=== PATIENT | male | born 1955 | race Caucasian/White ===

== ENCOUNTER → 2019-08-26 14:35 | Outpatient (CLI) | payer MEDICARE, SELFPAY ==
[2019-08-26 16:04] LABS: Add Manual Diff / Slide Review NO; Basophils Absolute Auto 0 /uL (0-100); Basophils Percent Auto 0.7 % (0-2); Eosinophils Absolute Auto 100 /uL (0-450); Eosinophils Percent Auto 1.4 % (2-4); Hematocrit 40.9 % (41-53); Hemoglobin 14.2 g/dL (13.5-17.5); Lymphocytes Absolute Auto 1200 /uL (1100-4500); Lymphocytes Percent Auto 21.2 % (25-40); Mean Corpuscular HGB Conc 34.7 % (30-36); Mean Corpuscular Hemoglobin 30.4 PG (26-34); Mean Corpuscular Volume 87.6 fL (80-100); Monocytes Absolute Auto 400 /uL (0-900); Monocytes Percent Auto 6.6 % (3-14); Neutrophils Absolute Auto 4000 /uL (1500-7000); Neutrophils Percent Auto 70.1 % (50-75); Platelet Count 205 X10^3/uL (150-400); Red Blood Cell Count 4.67 X10^6/uL (4.5-5.9); Red Cell Distribution Width 12.8 % (11.6-14.8); White Blood Cell Count 5.7 X10^3/uL (4.5-11.0)
[2019-08-26 16:27] LABS: Carbon Dioxide 24 mmol/L (22-32); Chloride 105 mmol/L (98-107); HEMOLYSIS < 15 (0-50); Potassium 3.7 mmol/L (3.4-5.1); Sodium 137 mmol/L (137-145)
== END ==
PROVIDERS: PCP Family Medicine; Referring Provider Orthopaedic Surgery; Visit Provider Orthopaedic Surgery
DX: Z01.812 Encounter for preprocedural laboratory examination (principal); Z01.818 Encounter for other preprocedural examination
CPT/HCPCS: 36415; 80051; 85025

== ENCOUNTER → 2019-09-08 08:18 | Outpatient (CLI) | payer MEDICARE, SELFPAY ==
[2019-09-09 21:50] LABS: COVID19 Sendout Positive (Not Detect)
== END ==
PROVIDERS: PCP Family Medicine; Visit Provider Physician Assistant
DX: U07.1 COVID-19 (principal)
CPT/HCPCS: 87635

== ENCOUNTER → 2019-09-26 08:35 | Outpatient (CLI) | payer MEDICARE, SELFPAY ==
[2019-09-27 14:12] LABS: COVID19 Sendout Not Detected (Not Detected)
== END ==
PROVIDERS: PCP Family Medicine; Visit Provider Physician Assistant
DX: Z11.59 Encounter for screening for other viral diseases (principal); Z86.19 Personal history of other infectious and parasitic diseases
CPT/HCPCS: 87635

== ENCOUNTER → 2019-10-06 15:38 | Outpatient (CLI) | payer MEDICARE, SELFPAY ==
[2019-10-07 10:52] LABS: COVID19 Sendout Not Detected (Not Detect)
== END ==
PROVIDERS: PCP Family Medicine; Visit Provider Nurse Practitioner
DX: Z11.59 Encounter for screening for other viral diseases (principal)
CPT/HCPCS: 87635

== ENCOUNTER 2019-10-09 12:07 | Observation (INO) | payer MEDICARE, OTHER, SELFPAY ==
[2019-10-04 12:18] VITALS: BMI 28.0
[2019-10-09] VITALS (11 sets, daily range): BP systolic 112–158; BP diastolic 65–86; PULSE 56–80; RESP 8–18; TEMP 35.8–36.9; O2SAT 96–100; BMI 28.0
--- NOTE | 2019-10-09 10:15 | DI.RAD.S_ITS ---
PROCEDURE: XR PELVIS 1-2V INDICATIONS: TOTAL LEFT HIP TECHNIQUE: 1 view of the lower pelvis acquired. COMPARISON: None. FINDINGS: Bones: Patient is status post left hip arthroplasty, with hardware components in expected positions. The hip joint appears congruent. The visualized bony structures appear intact. Soft tissues: Overlying postoperative changes are noted. No suspicious soft tissue densities. IMPRESSION: Normal alignment after left total hip arthroplasty. Dictated by: Doug Han M.D. on 10/09/2019 at 16:11 Approved by: Doug Han M.D. on 10/09/2019 at 16:11
[2019-10-09] MEDS: PREGABALIN 75 MG CAPSULE PO (12:41)
[2019-10-09] MEDS: CELECOXIB 200 MG CAPSULE PO (12:41)
[2019-10-09] MEDS: LACTATED RINGERS 1,000 ML 42 ML IV ×2 (12:41→14:52)
[2019-10-09] MEDS: ACETAMINOPHEN 325 MG TABLET 975 MG PO (12:41)
[2019-10-09] MEDS: CEFAZOLIN 2 GM/100 ML FROZ.PIGGY IV ×2 (13:53→21:17)
--- NOTE | 2019-10-09 14:30 | SUR.OPER ---
Lateral on padded OR bed. Gel axillary roll. Arms secured on padded armboard with pillow supporting top arm. Padded hip positioner braces x4 - anterior and posterior chest and pelvis. Additional gel pad used anterior pelvis. Gel pad under bottom leg from knee to foot and secured with tape over sheet.
[2019-10-09] MEDS: MORPHINE 4 MG/ML INJ INJ (14:34)
[2019-10-09] MEDS: KETOROLAC 30 MG/ML VIAL IV (14:34)
[2019-10-09] MEDS: ROPIVACAINE 0.5% PF 5 MG/ML 20ML VIAL 60 ML INJ (14:34)
[2019-10-09] MEDS: TRANEXAMIC ACID 1,000 MG VIAL 1000 MG INJ ×2 (14:37→15:33)
--- NOTE | 2019-10-09 15:30 | PM.PREOP ---
Pre-operative Note COVID-19 COVID-19 status: Negative Result date/Date tested (Pos, Neg/Pending): 10/07/19 Interval Note History & Physical reviewed/Exam performed by Physician: Yes Changes to H&P: No
--- NOTE | 2019-10-09 15:34 | PM.OP.1 ---
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 The patient has pain with activities and at rest, limited ambulation and activity tolerance, difficulties with ADLs, and failure of conservative treatment. We have discussed the nature of condition, treatment options, risks and benefits, and patient elects to proceed with total hip arthroplasty and gives informed consent. Surgeon: Harjit Peacock Maintenance Man: Temo Rasmussen Anesthesia Type: General and Spinal Operative Notes Closure Type: primary Specimen(s): none sent Prosthetic devices, grafts, tissues, transplants, or devices: Acetabulum: Liang and Nephew R3 acetabular component size 52 mm Femoral component: Liang and Nephew anthology stem size 6 with high offset Femoral head: 36 mm + 4 Oxinium Estimated Blood Loss (mL): 200 Blood products transfused: none Procedure in detail: After satisfaction induction of anesthetic, and administration of IV antibiotics, the patient was positioned in the lateral decubitus position with all bony prominences well padded and pelvic position secured using a hip professional fee coder positioning device. Left hip and lower extremity prepped and draped in the usual sterile fashion, 1st dose of intravenous tranexamic acid was administered, then a longitudinal incision was created centered over the greater trochanter and carried sharply through the skin and subcutaneous tissues down to the fascia fermin which was divided longitudinally and retracted with a Charnley retractor. External rotators visualize, cut, tagged, and retracted posteriorly, then the capsule was cut in a T-type fashion with the corners tagged and retracted. Hip was dislocated and femoral neck cut made according to preoperative templating. Acetabular retractors then placed, and the acetabular labrum and osteophytes were excised. The acetabulum was then sequentially reamed to 51 mm with an excellent circumferential ream and fit with the trial. The trial component was removed and a permanent size 52 mm Liang and Nephew R3 acetabular component was selected, positioned, and impacted with satisfactory position and fixation achieved. Permanent liner was then inserted with the elevated lip directed posteriorly. Soft tissue then removed off the lateral femoral neck in the lateral neck was entered using a box osteotome. T-handled reamers placed down the canal followed by sequential broaching to 6 with the final broach left in place for trial reduction which demonstrated good leg length, range of motion, and stability characteristics with a high offset neck and 36 mm +0 trial ball. Another trial reduction was performed with a +4 ball and yielded even better leg length, range of motion, and stability characteristics. The trial and broach were removed, and a permanent size 6 high offset Liang [employer] Nephew Anthology stem was selected and inserted with excellent position and fixation achieved. Another trial reduction yielded the above characteristics so the trial ball was exchanged for a permanent 36 mm +4 Oxinium ball. The hip was irrigated and reduced and excellent leg length range of motion and stability characteristics were achieved and maintained. Periarticular tissues were infiltrated with ropivacaine, morphine, and Toradol. The hip was copiously irrigated, and the capsule repaired with #2 Ethibond, and the piriformis was repaired back to the greater trochanter with the same. Fascia fermin closed with interrupted #1 Ethibond sutures, and the subcutaneous tissues were closed in 2 layers of 0 Vicryl and 2 0 Vicryl. Skin was closed with chula and sterile dressings applied. Second dose of tranexamic acid was administered intravenously, and the anesthetic was terminated. Complications: none Post-operative Condition: stable Disposition: PACU Plan for aftercare: Patient will be admitted to the acute care [facility], and anticipate discharge on postop day 1 with follow-up in office in 10-14 days. Outpatient physical therapy will be arranged and patient will continue to observe posterior hip precautions. Patient will continue use of postoperative aspirin for DVT prophylaxis.
--- NOTE | 2019-10-09 16:54 | PC.ADMIT ---
[id number] [facility] Admission Note: The patient,Maxi Brown,64 y/o, was given written information regarding hospital policies, unit procedures and contact persons. Patient's smoking status: Never smoker. Pt arrived from PACU. A/O. Denies pain. Reports numbness to LLE. Unable to wiggle toes. Pulses palpable. VSS. RA 100%. Oriented to room and call system. Pt verbalized he will call for needs. Vital Signs - 8 hr 10/09/19 12:31 10/09/19 15:40 10/09/19 15:45 Temperature 98.4 F 97.1 F L 97.2 F L Pulse Rate 80 74 80 Respiratory Rate 18 16 8 L Blood Pressure 158/82 H 112/70 114/75 Pulse Oximetry 100 97 100 10/09/19 15:50 10/09/19 15:55 10/09/19 16:08 Temperature 97.1 F L 96.7 F L 96.6 F L Pulse Rate 59 L 70 57 L Respiratory Rate 14 14 14 Blood Pressure 119/65 129/74 133/75 Pulse Oximetry 100 100 100 10/09/19 16:15 10/09/19 16:45 Temperature 96.5 F L Pulse Rate 57 L 56 L Respiratory Rate 18 Blood Pressure 137/77 148/79 H Pulse Oximetry 100 100
[2019-10-09] MEDS: LACTATED RINGERS 1,000 ML 125 ML IV (17:22)
[2019-10-09] MEDS: ASPIRIN EC 81 MG TABLET PO (21:13)
[2019-10-09] MEDS: TAMSULOSIN 0.4 MG CAPSULE PO (21:13)
[2019-10-09] MEDS: DOCUSATE 100 MG CAPSULE PO (21:13)
[2019-10-09] MEDS: OXYCODONE IR 5 MG TABLET PO (21:17)
[2019-10-09] MEDS: ACETAMINOPHEN 325 MG TABLET 650 MG PO (21:17)
[2019-10-10] VITALS: BP 140/78; PULSE 66; RESP 18; TEMP 36.7; O2SAT 98
[2019-10-10] MEDS: hydrOXYzine pamoate 25 MG CAPSULE PO (01:43)
[2019-10-10] MEDS: OXYCODONE IR 5 MG TABLET PO ×4 (02:59→13:57)
[2019-10-10 04:45] VITALS: BP 126/59; PULSE 76; RESP 18; TEMP 36.6; O2SAT 98
[2019-10-10 05:08] LABS: Hematocrit 37.8 % (41-53)
[2019-10-10] MEDS: CEFAZOLIN 2 GM/100 ML FROZ.PIGGY IV (05:50)
[2019-10-10] MEDS: LACTATED RINGERS 1,000 ML 125 ML IV (06:43)
[2019-10-10 07:30] VITALS: BP 145/67; PULSE 85; RESP 16; TEMP 37.4; O2SAT 99
[2019-10-10] MEDS: ACETAMINOPHEN 325 MG TABLET 650 MG PO ×2 (08:11→13:56)
[2019-10-10] MEDS: DOCUSATE 100 MG CAPSULE PO (08:12)
[2019-10-10] MEDS: ASPIRIN EC 81 MG TABLET PO (08:12)
[2019-10-10 08:31] VITALS: BP 119/64; PULSE 59
--- NOTE | 2019-10-10 09:15 | PT.IIE ---
Current Diagnoses Unilateral primary osteoarthritis, left hip (10/09/19) Surgery Performed Operation Date: 10/09/19 13:45 Actual Procedures p Total Hip Arthroplasty(Left) - Harjit Peacock MD Surgical History (Last Updated 09/03/19 @ 09:13 by Chichi Rodriguez RN) History of vasectomy (Acute) Hx of arthroscopic knee surgery (Acute) Hx of cervical spinal arthrodesis (Acute) Hx of tonsillectomy (Acute) Medical History (Last Updated 09/03/19 @ 09:32 by Chichi Rodriguez RN) Abscessed tooth (Acute 08/08/19) Enlarged prostate (Acute) Psoriasis (Acute) Physical Therapy Inpatient Evaluation/Re-Eval M1 PT/OT-IP Prior Functional Status Start: 10/10/19 10:42 Freq: NEEDED Status: Active Protocol: Document 10/10/19 09:15 AB (Rec: 10/10/19 10:51 AB [email or web address]) Medical Review Prior Functional Status Medical History Reviewed Yes Communication able to make needs known Mobility and Gait pt stated that he is independent with all mobilities and ambulation without AD Social History Household Members spouse Living Arrangements House Number of Floors (Floors) Two Floors Number of Stairs To Enter/Railing? pt stays on main level of the house has 2 steps with L rail to enter Home Environment Standard Height Toilet,Tub/ Shower Home Equipment Front Wheel Walker,Straight Cane,Raised Toilet Seat Without Armrests,Hand Held Shower Additional Social History Comment pt was a cook school cafeteria M2 PT-IP Current Condition Start: 10/10/19 10:42 Freq: NEEDED Status: Active Protocol: Document 10/10/19 09:15 AB (Rec: 10/10/19 10:51 AB [email or web address]) Physical Therapy Current Condition Current Condition Evaluation Date 10/10/19 Treatment Diagnosis s/p L SOFIYA posterior approach; difficulty in walking Onset Date 10/09/19 Precautions Posterior Hip Precautions No Hip Flexion > 90 degrees,No Hip Internal Rotation,No Hip Adduction Weight Bearing Status Weight Bearing Status Weight Bear as Tolerated Allowed Weight Bearing Amount (enter % LLE WBAT or #) (%) M3 PT-IP Subjective Start: 10/10/19 10:42 Freq: NEEDED Status: Active Protocol: Document 10/10/19 09:15 AB (Rec: 10/10/19 10:51 AB [id number]) Subjective Physical Therapy Visit Type Type Initial Evaluation Visit Start Time 09:15 Visit Stop Time 10:17 Total Visit Minutes 62 Number of THREAT MONITORING ANALYST Visits 0 Physical Therapy Visit Comments Patient Comments pt is agreeable to do PT Therapy Pain Assessment Pain When Pain Assessed At Rest Pain Present Pain Present Pain Reported Location Left Hip Intensity 3 Scale Used Numeric (0 - 10) Pain Management Techniques Apply Cold,Re-positioning, Timing of Activity with Medications M4 PT-IP Mobility and Gait Start: 10/10/19 10:42 Freq: NEEDED Status: Active Protocol: Document 10/10/19 09:15 AB (Rec: 10/10/19 10:51 [id number]) PT-Bed Mobility Assessment Supine to Sit Supine to Sit Standby Assistance Sit to Supine Sit to Supine Standby Assistance PT-Transfer Assessment Sit to and From Stand Sit to and from Stand Contact Guard Assistance,1 Person Assistance Equipment Transfer Assistive Device Gait Belt,Front Wheeled Walker Orthotic/Prosthetic Devices or Brace: No Transfers Transfer Destination Bed,Chair Transfer Technique Stand Step Pivot Transfer Ability Level of Assist Contact Guard Assistance,1 Person Assistance,Use of Upper Extremities Comments Mobility Comments educated pt on hip precautions . pt has difficulty recalling precautions. spouse in room with pt. pt completed sit to stand from chair CGA and cues for precautions and techniques . completed transfer to bed using FWW CGA. completed supine <>sit SBA. pt ambulated in room with PT using FWW CGA ~ 20 ft. cues for quads activation L. caregiver training initiated. educated spouse on how to use safety belt and how to assist pt. spouse was able to put belt on and assist pt with sit to stand and ambulation in room using FWW. pt agreed to sit up on chair. set up caregiver training for ~ 1pm later today. positioned pt on chair. call light and table placed within reach. Gait Assessment Gait Gait Assistance Required: Contact Guard Assist Distance (Feet) 20 Able to Maintain Weight Bearing Status Yes During Gait Assistive Devices Assistive Device Gait Belt,Front Wheeled Walker Orthotic/Prosthetic Devices or Brace: No Gait Deviations General Gait Pattern Antalgic Factors Limiting Gait Function Factors Limiting Gait Function Decreased Activity Tolerance, Decreased Strength,Difficulty Following Directions,Limited Range of Motion,Pain,Poor Balance,Poor Safety Awareness PT-Balance Assessment Sitting Balance and Reactions Static Sitting Balance Ability Normal Dynamic Sitting Balance Ability Normal Standing Balance and Reactions Static Standing Balance Ability Fair Dynamic Standing Balance Ability Fair Device Used FWW M5 PT-IP Objective Assessments Start: 10/10/19 10:42 Freq: NEEDED Status: Active Protocol: Document 10/10/19 09:15 AB (Rec: 10/10/19 10:51 AB [email or web address]) Orientation Orientation/Cognition Level of Alertness Alert Orientation Name,Place,Situation Language Function Ability No Deficits Noted Safety Awareness Decreased Safety Awareness Memory Description Short Term Impaired Gross Range of Motion Lower Extremity ROM Assessment Within Functional Limits Strength Lower Extremity Strength Assessment Left Impaired Hip 3+/5 Knee 3+/5 Coordination Assessment Gross Coordination Gross Coordination WNL Sensation Assessment Sensation Gross Sensation WNL Muscle Tone Muscle Tone WNL Yes M6 PT-IP Treatment Start: 10/10/19 10:42 Freq: NEEDED Status: Active Protocol: Document 10/10/19 09:15 AB (Rec: 10/10/19 10:51 AB [id number]) Physical Therapy Treatment Education Education Provided Precautions,Weight Bearing Status,Post-Op Packet,Safety M7 PT-IP Assessment and Plan Start: 10/10/19 10:42 Freq: NEEDED Status: Active Protocol: Document 10/10/19 09:15 AB (Rec: 10/10/19 10:51 AB [id number]) PT Summary Assessment and Plan Potential Rehabilitation Potential Good Status of Condition at Evaluation Stable Summary Impairments Pain,ROM,Strength,Balance, Coordination,Sensation,Tone, Cognition,Bed Mobility, Transfers,Gait,Activity Tolerance Assessment Summary pt requiring CGA with mobility and caregiver training initiated but requires further training. set up caregiver training at 1pm today. will also conduct stair climbing training. pt stated that he is set up for outpt PT. pt plans to go home with spouse to assist. Goals Bed Mobility Goal Independent Transfer Goal Independent,Front Wheeled Walker Gait Goal Independent,Front Wheel Walker Gait Distance 200 Other Goals up/down 2 steps L rail CGA Days to Meet Goals 3 Frequency of Treatment Frequency Of Treatment Twice a Day Treatment Plan Physical Therapy Treatment Plan Bed Mobility Training,Transfer Training,Gait Training, Therapeutic Exercise,Balance Retraining,Post Op Education, Discharge Planning,Hot or Cold Pack,Neuromuscular Re-ed, Coordination Retraining,Manual Therapy Recommendations To Nursing Amount of Assist Needed 1 Person Assist Discharge Recommendations PT Discharge Recommendations Home with Assistance, Outpatient PT Transportation Needs at Discharge Private Vehicle
[2019-10-10 11:46] VITALS: BP 132/75; PULSE 75; RESP 15; TEMP 36.6; O2SAT 100
--- NOTE | 2019-10-10 13:15 | PT.IPTN ---
Current Diagnoses Unilateral primary osteoarthritis, left hip (10/09/19) Surgery Performed Operation Date: 10/09/19 13:45 Actual Procedures p Total Hip Arthroplasty(Left) - Harjit Peacock MD Physical Therapy Treatment Note M2 PT-IP Current Condition Start: 10/10/19 10:42 Freq: NEEDED Status: Discharge Protocol: Document 10/10/19 09:15 AB (Rec: 10/10/19 10:51 AB [email or web address]) Physical Therapy Current Condition Current Condition Evaluation Date 10/10/19 Treatment Diagnosis s/p L SOFIYA posterior approach; difficulty in walking Onset Date 10/09/19 Precautions Posterior Hip Precautions No Hip Flexion > 90 degrees,No Hip Internal Rotation,No Hip Adduction Weight Bearing Status Weight Bearing Status Weight Bear as Tolerated Allowed Weight Bearing Amount (enter % LLE WBAT or #) (%) M3 PT-IP Subjective Start: 10/10/19 10:42 Freq: NEEDED Status: Discharge Protocol: Document 10/10/19 13:15 AB (Rec: 10/10/19 15:35 AB [email or web address]) Subjective Physical Therapy Visit Type Type Treatment Note Visit Start Time 13:15 Visit Stop Time 13:48 Total Visit Minutes 33 Number of CENTURA TECHNICAL LEAD SENIOR DEVELOPER Visits 0 Therapy Pain Assessment Pain When Pain Assessed At Rest Pain Present Pain Present Pain Reported Location Left Hip Intensity 3 Scale Used Numeric (0 - 10) M4 PT-IP Mobility and Gait Start: 10/10/19 10:42 Freq: NEEDED Status: Discharge Protocol: Document 10/10/19 13:15 AB (Rec: 10/10/19 15:35 AB [email or web address]) PT-Bed Mobility Assessment Supine to Sit Supine to Sit Standby Assistance Sit to Supine Sit to Supine Standby Assistance PT-Transfer Assessment Sit to and From Stand Sit to and from Stand Contact Guard Assistance,1 Person Assistance,Use of Upper Extremities Equipment Transfer Assistive Device Gait Belt,Front Wheeled Walker Orthotic/Prosthetic Devices or Brace: No Transfers Transfer Destination Bed Transfer Technique Stand Step Pivot Transfer Ability Level of Assist Contact Guard Assistance Comments Mobility Comments hip precautions reviewed and pt continues to require cues. caregiver training conducted. spouse was able to put safety belt on and assist pt to bed. pt completed supine < >sit SBA with cues. spouse assisted pt with ambulation and completed ~ 100 ft using FWW CGA. PT educated and demonstrated stair climbing with pt . pt completed up/down steps with spouse assisting using L rail ascending. pt assisted back to his room. ambulated from w /c to chair using FWW CGA with sposue assisting. educated on how to do car transfer . pt and spouse without any further concerns. informed nurse regarding pt's mobility and awaiting d/c. Gait Assessment Gait Gait Assistance Required: Contact Guard Assist Distance (Feet) 100 Able to Maintain Weight Bearing Status Yes During Gait Assistive Devices Assistive Device Gait Belt,Front Wheeled Walker Orthotic/Prosthetic Devices or Brace: No Gait Deviations General Gait Pattern Antalgic Factors Limiting Gait Function Factors Limiting Gait Function Decreased Activity Tolerance, Decreased Strength,Difficulty Following Directions,Limited Range of Motion,Pain,Poor Balance,Poor Safety Awareness Comments Gait Comments pls refer to mobility section for details Stair Climbing Assessment Evaluation Level of Assist On Stairs Contact Guard Assistance,1 Person Assistance Devices Stair Climbing Assistive Devices Left Railing Technique/Endurance Stair Climbing Direction Ascend and Descend Stair Climbing Technique Step to Step Number of Steps Climbed 3 Stair Climbing Set # Repetitions (reps) 1 Comments Stair Climbing Comments pls refer to mobility section for details M5 PT-IP Objective Assessments Start: 10/10/19 10:42 Freq: NEEDED Status: Discharge Protocol: Document 10/10/19 09:15 AB (Rec: 10/10/19 10:51 AB [email or web address]) Orientation Orientation/Cognition Level of Alertness Alert Orientation Name,Place,Situation Language Function Ability No Deficits Noted Safety Awareness Decreased Safety Awareness Memory Description Short Term Impaired Gross Range of Motion Lower Extremity ROM Assessment Within Functional Limits Strength Lower Extremity Strength Assessment Left Impaired Hip 3+/5 Knee 3+/5 Coordination Assessment Gross Coordination Gross Coordination WNL Sensation Assessment Sensation Gross Sensation WNL Muscle Tone Muscle Tone WNL Yes M6 PT-IP Treatment Start: 10/10/19 10:42 Freq: NEEDED Status: Discharge Protocol: Document 10/10/19 13:15 AB (Rec: 10/10/19 15:35 AB [email or web address]) Physical Therapy Treatment Education Education Provided Precautions,Safety M7 PT-IP Assessment and Plan Start: 10/10/19 10:42 Freq: NEEDED Status: Discharge Protocol: Document 10/10/19 13:15 AB (Rec: 10/10/19 15:35 AB [email or web address]) PT Summary Assessment and Plan Potential Rehabilitation Potential Good Summary Impairments Pain,ROM,Strength,Balance, Coordination,Sensation,Tone, Cognition,Bed Mobility, Transfers,Gait,Activity Tolerance Progress Towards Goals Progressing Toward Goals,Safe For Discharge Assessment Summary caregiver training conducted and spouse was able to assist pt safely. pt plans to go home with spouse to assist and is set up for outpt PT. Goals Bed Mobility Goal Independent Transfer Goal Independent,Front Wheeled Walker Gait Goal Independent,Front Wheel Walker Gait Distance 200 Other Goals up/down 2 steps L rail CGA Days to Meet Goals 3 Frequency of Treatment Frequency Of Treatment Twice a Day Treatment Plan Physical Therapy Treatment Plan Bed Mobility Training,Transfer Training,Gait Training, Therapeutic Exercise,Balance Retraining,Post Op Education, Discharge Planning,Hot or Cold Pack,Neuromuscular Re-ed, Coordination Retraining,Manual Therapy Recommendations To Nursing Amount of Assist Needed 1 Person Assist Discharge Recommendations PT Discharge Recommendations Home with Assistance, Outpatient PT Transportation Needs at Discharge Private Vehicle
--- NOTE | 2019-10-10 14:39 | PC.NURSE ---
Day shift: Pt taken to car that is driven by his spouse by this junior technical writer in WC. Tolerated well. Paperwork signed and all questions answered. Pt has all personal belongings and MD scripts as well. Dressing was CDI.
--- NOTE | 2019-10-10 15:57 | CM.IDA ---
Initial DCP Assessment Note Pt is a 64 yo male, resident of [place], now POD#1 from t hip surgery w/ Dr Peacock PCP: Bryan Haji Payer: YOLANDA Reviewed chart, pt discussed in multidisciplinary rounds this morning. Met w/patient and spouse this AM to introduce role. Therapy has cleared pt for return home w/family to assist and pt has planned for home, DC order from Ortho has already been initiated this morning. No needs expected from DC planning team although will remain available in case this changes today. SHAGGY Bowen
== END 2019-10-10 14:41 | disposition home or self-care (01) ==
LOC: OR 12:09 → AC 14:02
PROVIDERS: Admitting Provider Orthopaedic Surgery; PCP Family Medicine; Referring Provider Family Medicine; Visit Provider Orthopaedic Surgery
PROC: 0SRB0JZ Replacement of Left Hip Joint with Synthetic Substitute, Open Approach (ICD-10-PCS; CPT 27130; principal; 2019-10-09 13:45)
DX: M16.12 Unilateral primary osteoarthritis, left hip (principal)
CPT/HCPCS: 27130; 36415; 72170; 85014; 85018; 97161; 97530; C1776; G0378; J0690; J1885; J2250; J2270; J3010

== ENCOUNTER → 2023-11-14 14:00 | Outpatient (CLI) | payer OTHER, SELFPAY ==
[2019-10-09 13:56] VITALS: BMI 28.0
[2023-11-14 16:37] LABS: Prostate Specific Antigen Scrn 8.79 ng/mL (0.1-4.0)
== END ==
PROVIDERS: PCP Family Medicine; Visit Provider Urology
DX: Z12.5 Encounter for screening for malignant neoplasm of prostate (principal); R39.9 Unspecified symptoms and signs involving the genitourinary system
CPT/HCPCS: 36415; 81002; 87086; 99213; G0103

== ENCOUNTER → 2023-11-23 14:36 | Outpatient (CLI) | payer OTHER, SELFPAY ==
[2019-10-09 13:56] VITALS: BMI 28.0
== END ==
PROVIDERS: PCP Family Medicine; Visit Provider Urology
DX: N40.1 Benign prostatic hyperplasia with lower urinary tract symptoms (principal)
CPT/HCPCS: 87086

== ENCOUNTER → 2024-03-12 10:44 | Outpatient (CLI) | payer OTHER, SELFPAY ==
[2019-10-09 13:56] VITALS: BMI 28.0
== END ==
PROVIDERS: PCP Family Medicine; Visit Provider Urology
DX: N40.1 Benign prostatic hyperplasia with lower urinary tract symptoms (principal); N13.8 Other obstructive and reflux uropathy; R97.20 Elevated prostate specific antigen [PSA]
CPT/HCPCS: 87086

== ENCOUNTER → 2024-03-12 11:39 | Outpatient (CLI) | payer OTHER, SELFPAY ==
[2019-10-09 13:56] VITALS: BMI 28.0
[2024-03-12 12:58] LABS: Prostate Specific Antigen 7.45 ng/mL (0.10-4.00)
== END ==
LOC: LAB 11:41
PROVIDERS: PCP Family Medicine; Referring Provider Urology; Visit Provider Urology
DX: Z01.818 Encounter for other preprocedural examination (principal); N40.1 Benign prostatic hyperplasia with lower urinary tract symptoms; R97.20 Elevated prostate specific antigen [PSA]
CPT/HCPCS: 36415; 84153; 87086; 99214

== ENCOUNTER 2024-03-18 06:07 | Day surgery (SDC) | payer OTHER, SELFPAY ==
[2019-10-09 13:56] VITALS: BMI 28.0
[2024-03-11 14:53] VITALS: BMI 26.9
[2024-03-18] VITALS (10 sets, daily range): BP systolic 91–181; BP diastolic 57–92; PULSE 61–94; RESP 10–18; TEMP 36.1–36.6; O2SAT 96–100; BMI 26.6
--- NOTE | 2024-03-18 | PATH_ITS ---
[facility] Accession Number: [id number] No. of containers..01 Tissue . 01 Material submitted: . prostate - PROSTATE CHIPS . 01 Diagnosis: PROSTATE CHIPS, 32 GRAMS, TRANSURETHRAL RESECTION: Benign prostatic hyperplasia. Scant benign urothelium. Negative for invasive malignancy. MRV 03/22/2024 1016 Local . 01 Electronically signed: . Chula Dinh DO, Pathologist NPI- [id number] . 01 Gross description: . Received in formalin with two patient identifiers and prostate chips, are multiple moffett soft tissue fragments admixed with a large amount of hemorrhagic material weighing 32 grams and aggregating to 9.2 x 8.4 x 2.7 cm. The majority of the tissue fragments are submitted in A1-A10. ([id number]) /MRV 03/19/2024 1948 Local . 01 Pathologist provided ICD-10: N40.1 . 01 CPT . 019540 Specimen Comment: A courtesy copy of this report has been sent to [facility] Pathology Performed at: [address] [address], [place], [place] [id number] MD Jason Townsend MD Phone: [phone]
[2024-03-18] MEDS: LACTATED RINGERS 1,000 ML 21 ML IV ×2 (07:12→09:21)
--- NOTE | 2024-03-18 07:32 | P.OP.PRE_ITS ---
Pre-operative Note COVID-19 COVID-19 status: Not tested Interval Note History & Physical reviewed/Exam performed by Physician: Yes Changes to H&P: No H&P completed within 30 days and has changed as indicated here:: Is not concern ed about possible risk of retrograde ejaculation.
[2024-03-18] MEDS: CEFAZOLIN VIAL 2 GM in SODIUM CHLORIDE 0.9% 100 ML IV (08:04)
--- NOTE | 2024-03-18 08:18 | SUR.OPER ---
Lithotomy on padded OR bed, head on pillow, arms secured on padded arm boards at <90 degrees abduction. Legs secured in padded yellow fins stirrups.
[2024-03-18] MEDS: OXYCODONE IR 5 MG TABLET PO (11:06)
--- NOTE | 2024-03-18 11:06 | P.OP_ITS ---
Procedure & Clinicians Procedure: Cystoscopy Aquablation Same procedure as scheduled: Yes Indications: 68 y/o M w/ h/o BPH and LUTS that has been treated with Tamsulosin 0.8mg daily. He is interested in stopping his medication and having a procedure performed as he is not currently happy with his urinary habits. Surgeon: Ag Short Click Yes if Unassisted: Yes Anesthesia Type: General Operative Notes Findings: Coaptating lateral prostatic lobes, no intravesical median lobe Closure Type: not applicable Specimen(s): other (prostate chips) Applied: catheter Estimated Blood Loss (mL): 50 Blood products transfused: none Procedure in detail: After informed consent was obtained, the patient was identified brought to the operating room where he was placed in his supine position on the table.? Once there anesthesia was induced and maintained.? Ensuring an adequate level of anesthesia the patient was transitioned to the lithotomy position where after time-out he was prepped.? After prepping, ensuring an adequate level of anesthesia, administration IV antibiotics and time-out 60 cc of ultrasound gel was instilled within the rectum and the ultrasound probe which had been attached to the TRUS stepper which was attached to the TRUS stepper articulating arm which was secured to the bed was advanced into the rectum under direct vision via the ultrasound.? The ultrasound probe was then aligned and confirmation made that the prostate was centered and aligned in both the sagittal and transverse views.? The bladder neck, verumontanum, central and transitional zones were identified.? With the ultrasound in place and adjusted the patient was then draped in a sterile fashion. With the patient draped the 24 Sinhala aqua beam handpiece was then inserted through the urethra and advanced into the bladder.? Cystoscopy was then performed and no concerning bladder mass or lesions were noted.? Bilateral ureteral orifices were noted to be orthotopic in nature.? As the cystoscope was advanced the level of the sphincter, verumontanum, bladder neck were all identified via ultrasound and under direct vision.? The aqua beam hand place was then secured to the handpiece articulating arm which had been secured to the bed.? The Aquablation handpiece and TRUS probe were confirmed to be parallel and colinear.? Confirmation was then made that the aqua beam handpiece and nozzle was centered and anterior to the bladder neck. ?The cystoscope was then retracted under direct vision in the sphincter and verumontanum were identified.? The tip of the cystoscope was then placed proximal to the external sphincter.? Compression was applied with the TRUS probe to the prostate.? The alignment of the TRUS probe and aqua beam handpiece was once again confirmed.? Horizontal alignment of the handpiece water jet was then performed.? With these adjustments made, the treatment zones were then planned using real-time ultrasound.? In the largest transverse view of the prostate the depth and radial angles were determined and set again in the transverse view of the prostate.? In the longitudinal and sagittal view the Aquablation nozzle was identified and its position registered with the software and robot.? The treatment contours were then determined and adjusted to reflect the intended margins of resection.? Following our plan confirmation, the Aquablation resection treatment was started.? A 2nd pass was then completed in similar fashion after the 1st pass had been completed.? At this point, the Aqua hand piece was removed from the urethra. The 26Fr resectoscope was then inserted into the urethra and cystoscopy was repeated.? The [employer] development worker was utilized to evacuate the blood clots from the bladder.? The bladder neck was then resected using the bipolar Gyrus loop.? Bilateral ureteral orifices were again identified and noted to be intact at case end.? Hemostasis was obtained and noted to be excellent at case end.? The resectoscope was then removed and a 22Fr Kylie 3-way hematuria catheter was inserted through the urethra and into the bladder.? 45cc of sterile water was utilized for balloon insufflation.? Efflux was noted to be clear at case end.? Anesthesia was reversed, he was extubated in the OR and transferred to the PACU in stable condition for recovery. Complications: none Post-operative Condition: stable Disposition: PACU Plan for aftercare: Will continue to run CBI for a few hours to evaluate the efflux from his catheter.? Should it remain relatively clear and with minimal blood clots, will discharge home with catheter in place and have him return to Urology clinic in 2 days for a voiding trial.? Should his efflux remain red or have significant clot burden, will admit overnight for observation and continued CBI.
--- NOTE | 2024-03-18 15:48 | SUR.PHASEII ---
1415 - Dr Short at bedside to prepare pt for discharge. demonstrates paniagua emptying and irrigation technique. Verbalizes understanding.
== END 2024-03-18 14:45 | disposition home or self-care (01) ==
LOC: OR 06:07 → AC 06:09
PROVIDERS: PCP Family Medicine; Referring Provider Urology; Visit Provider Urology
PROC: 0VT08ZZ Resection of Prostate, Via Natural or Artificial Opening Endoscopic (ICD-10-PCS; CPT 52597; principal; 2024-03-18 07:45)
DX: N40.1 Benign prostatic hyperplasia with lower urinary tract symptoms (principal); N13.8 Other obstructive and reflux uropathy; R97.20 Elevated prostate specific antigen [PSA]
CPT/HCPCS: 0421T; 82962; C2596; J0330; J0690; J1100; J2405; J2704; J3010

== ENCOUNTER → 2024-03-20 14:15 | Outpatient (CLI) | payer OTHER, SELFPAY ==
[2024-03-18 13:58] VITALS: BMI 28.0
== END ==
PROVIDERS: PCP Family Medicine; Visit Provider Urology
DX: R39.9 Unspecified symptoms and signs involving the genitourinary system (principal)
CPT/HCPCS: 87086

== ENCOUNTER → 2024-05-09 13:26 | Outpatient (CLI) | payer OTHER, SELFPAY ==
[2024-03-18 13:58] VITALS: BMI 28.0
== END ==
PROVIDERS: PCP Family Medicine; Visit Provider Urology
DX: N40.1 Benign prostatic hyperplasia with lower urinary tract symptoms (principal); R97.20 Elevated prostate specific antigen [PSA]
CPT/HCPCS: 51798; 81002; 87086; 99213

== ENCOUNTER → 2024-09-11 10:39 | Outpatient (CLI) | payer OTHER, SELFPAY ==
[2024-03-18 13:58] VITALS: BMI 28.0
[2024-09-11 12:12] LABS: Prostate Specific Antigen 3.10 ng/mL (0.10-4.00)
== END ==
PROVIDERS: PCP Family Medicine; Referring Provider Urology; Visit Provider Urology
DX: R97.20 Elevated prostate specific antigen [PSA] (principal)
CPT/HCPCS: 36415; 84153